=== PATIENT | female | born 1995 | race African-American/Black ===

== ENCOUNTER 2025-07-15 18:58 | Emergency (ER) | payer BC ==
[~2025-07-15] VITALS: Ht 170.2 cm; Wt 73.0 kg
[2025-07-15 19:01] VITALS: O2SAT 97
[2025-07-15] MEDS ORDERED: IBUP-2028 MT (21:57)
[2025-07-15] MEDS: IBUPROFEN 600MG TABLET PO ONE (22:02)
[2025-07-15 22:07] VITALS: BP 113/84; PULSE 86; RESP 14; TEMP 37.1; O2SAT 97
== END 2025-07-15 22:11 | disposition home or self-care (01) ==
LOC: ER 18:58
DX: M17.12 Unilateral primary osteoarthritis, left knee (principal); J45.909 Unspecified asthma, uncomplicated
CPT/HCPCS: 73562; 99283; Z7610; A4606